=== PATIENT | male | born 1975 | race Caucasian/White ===

== ENCOUNTER 2024-01-21 17:35 | Emergency (ER) | payer MEDICARE, BC, SELFPAY ==
[2024-01-21] VITALS (17 sets, daily range): BP systolic 151–178; BP diastolic 85–102; PULSE 62–92; TEMP 36.8; O2SAT 94–97; BMI 39.0
--- NOTE | 2024-01-21 17:38 | ECG_ITS ---
[facility] Test Date: 2024-01-21 Pat Name: Markos Souza Department: Room: - Gender: Male Electric [employer]: : 1975 Requested By: [id number] Order Number: [id number] Reading MD: ADAM BEDOYA Measurements Intervals Ele[place] Rate: 60 P: 60 NJ: 126 QRS: 50 QRSD: 118 T: 27 QT: 430 QTc: 431 Interpretive Statements 1100 Sinus rhythm 2440 Incomplete right bundle branch block 4068 Nonspecific Twave abnormality 9130 borderline ECG No previous ECG available for comparison Electronically Signed On 01-22-2024 5:21:44 EDT by ADAM BEDOYA
--- NOTE | 2024-01-21 17:39 | ED.SYNCOPE1 ---
HPI - Syncope General Chief Complaint: Syncope Stated Complaint: DIZZY Time Seen by Provider: 01/21/24 17:38 History of Present Illness HPI narrative: Patient is a 48-year-old male with a longstanding history of headaches who was seen by the [facility] for neurology for them, presents to the ER by ambulance after syncopal episode at home. He states he had an increase in his typical headache today. He calls this a headache spell when he has pain on top of his typical headache. He reports global head pain and states he was walking from the kitchen to the bathroom when he passed out on the floor. He reports pain in the left shoulder from the fall. He denies neck pain, back pain, chest pain, shortness of breath, fevers, chills, cough, congestion. He states his daughter was seen earlier today and diagnosed with strep. Related Data Previous Rx's ?Medication ?Instructions ?Recorded methocarbamol 750 mg tablet 750 mg PO TID PRN pain #20 tabs 01/21/24 metoclopramide HCl 10 mg tablet 10 mg PO Q6H PRN nausea and 01/21/24 (Reglan) vomiting #12 tabs Allergies Allergy/AdvReac Type Severity Reaction Status Date / Time cyproheptadine Allergy Severe Verified 01/21/24 17:40 [From Periactin] nadolol Allergy Severe Verified 01/21/24 17:40 Review of Systems ROS Constitutional Denies: fever or chills Eyes Denies: change in vision Ears, nose, mouth, and throat Denies: throat pain or nasal congestion Cardiovascular Denies: chest pain Respiratory Denies: shortness of breath or cough Gastrointestinal Denies: nausea, vomiting or diarrhea Musculoskeletal Reports: extremity pain and joint pain; Denies: back pain or neck pain Integumentary/Breast Denies: rash Neurological Reports: headache; Denies: numbness in extremities or weakness in extremities Hematologic/Lymphatic Denies: easy bruising or easy bleeding Exam Narrative Exam Narrative: Gen.: Awake, alert, in no distress Head: Normocephalic, atraumatic ENT: Moist mucous membranes, no facial injury Respiratory: No respiratory distress, lungs clear bilaterally Cardio: Regular rate and rhythm Extremities: Tenderness and Limited range of motion at the left shoulder. No obvious deformity or sulcus sign Psych: Normal mood and affect Neuro: No focal neuro deficit Skin: Warm, dry, intact Constitutional Vital Signs, click to edit/add: Last Vital Signs Temp 98.2 F 01/21/24 17:37 Pulse 66 01/21/24 17:37 Resp 18 01/21/24 17:37 BP 164/86 H 01/21/24 17:37 Pulse Ox 96 01/21/24 17:37 O2 Del Method Room Air 01/21/24 17:37 Course Vital Signs Vital signs: Vital Signs Temperature 98.2 F 01/21/24 17:37 Pulse Rate 66 01/21/24 17:37 Respiratory Rate 18 01/21/24 17:37 Blood Pressure 164/86 H 01/21/24 17:37 Pulse Oximetry 96 01/21/24 17:37 Oxygen Delivery Method Room Air 01/21/24 17:37 Temperature 98.2 F 01/21/24 17:37 Pulse Rate 66 01/21/24 17:37 Respiratory Rate 18 01/21/24 17:37 Blood Pressure 164/86 H 01/21/24 17:37 Pulse Oximetry 96 01/21/24 17:37 Oxygen Delivery Method Room Air 01/21/24 17:37 MDM - Syncope MDM Narrative Medical decision making narrative: Patient was given IV fluids, Reglan, Benadryl, Norflex for treatment of headache and shoulder pain. Toradol was given by EMS prior to arrival. Vital signs are stable, no EKG changes noted. Labs including respiratory panel and strep screen are negative. Patient is feeling better on reevaluation by attending physician. CT of the brain, C-spine and shoulder x-rays are unremarkable and he is discharged to follow-up with PCP. Return to the ER if symptoms change or worsen Medical Records Attestation: I reviewed the patient's medical records. Lab Data Attestation: I reviewed the patient's lab results. Labs: Lab Results 01/21/24 01/21/24 Range/Units 17:30 17:45 WBC 6.0 (4.0-11.0) 10^3/uL RBC 5.05 (4.70-6.10) 10^6/uL Hgb 14.5 (14.0-18.0) g/dL Hct 44.0 (42.0-54.0) % MCV 87.1 (80.0-94.0) fL MCH 28.7 (25.9-34.0) pg MCHC 33.0 (29.9-35.2) g/dL RDW 13.4 (11.0-15.0) % Plt Count 313 (150-450) 10^3/uL MPV 9.7 (9.5-13.5) fL Neut % (Auto) 48.3 (43.0-75.0) % Lymph % (Auto) 39.2 (20.5-60.0) % Burnett % (Auto) 10.6 (1.7-12.0) % Eos % (Auto) 1.3 (0.9-7.0) % Baso % (Auto) 0.3 (0.2-2.0) % Neut # (Auto) 2.9 (1.4-6.5) 10^3/uL Lymph # (Auto) 2.3 (1.2-3.8) 10^3/uL Burnett # (Auto) 0.6 (0.3-0.8) 10^3/uL Eos # (Auto) 0.1 (0.0-0.7) 10^3/uL Baso # (Auto) 0.0 (0.0-0.1) 10^3/uL Abs Immat Gran (auto) 0.02 (0.00-0.03) 10^3/uL Imm/Tot Granulo (auto) 0.3 (0.0-0.5) % PT 9.6 (9.0-11.6) sec INR <0.93 Sodium 146 H (136-145) mmol/L Potassium 3.1 L (3.5-5.1) mmol/L Chloride 106 (98-107) mmol/L Carbon Dioxide 27.7 (21.0-32.0) mmol/L Anion Gap 15.4 BUN 17.0 (7.0-18.0) mg/dL Creatinine 1.29 (0.70-1.30) mg/dL Est GFR ( Amer) >60 (>=60) Est GFR (Non-Af Amer) 59 L (>=60) BUN/Creatinine Ratio 13.2 Glucose 91 (74-106) mg/dL Lactate 1.6 (0.4-2.0) mmol/L Calcium 8.9 (8.5-10.1) mg/dL Total Bilirubin 0.4 (0.2-1.0) mg/dL AST 41 H (15-37) U/L ALT 65 H (16-63) U/L Alkaline Phosphatase 75 (46-116) U/L Troponin I High Sens 11.7 (4.0-76.1) pg/mL Total Protein 7.8 (6.4-8.2) g/dL Albumin 4.1 (3.4-5.0) g/dL Globulin 3.7 g/dL Albumin/Globulin Ratio 1.1 Adenovirus (PCR) Not detected (NOT DETECTE) C. pneumoniae DNA (PCR) Not detected (NOT DETECTE) Coronavirus Type OC43 Not detected (NOT DETECTE) Coronavirus Type HKU1 Not detected (NOT DETECTE) Coronavirus Type 229E Not detected (NOT DETECTE) Coronavirus Type NL63 Not detected (NOT DETECTE) Human Metapneumovir PCR Not detected (NOT DETECTE) M. pneumoniae (PCR) Not detected (NOT DETECTE) Parainfluenza PCR Not detected (NOT DETECTE) Parainfluenza 2 (PCR) Not detected (NOT DETECTE) Parainfluenza 3 (PCR) Not detected (NOT DETECTE) Parainfluenza 4 (PCR) Not detected (NOT DETECTE) RSV (RT-PCR) Not detected (NOT DETECTE) Entero/Rhino (PCR) Not detected (NOT DETECTE) SARS-CoV-2 (PCR) Not detected (NOT DETECTE) Streptococcus Screen Negative Bordetella pertussis (PCR) Not detected (NOT DETECTE) B parapertussis DNA PCR Not detected (NOT DETECTE) Influenza Type A (PCR) Not detected (NOT DETECTE) Influenza Type B (PCR) Not detected (NOT DETECTE) Imaging Data CT scan - head: Attestation: I have reviewed the pertinent imaging results. Radiologist's impression: ITS Impressions Cervical Spine CT 01/21/24 17:43 IMPRESSION: No acute fracture of the cervical spine. Electronically authenticated by: KENNETH EVANGELISTA Date: 01/21/2024 19:[address] 01/21/24 17:43 IMPRESSION: No intracranial mass lesion or hemorrhage. No CT evidence of acute infarct. Electronically authenticated by: KENNETH EVANGELISTA Date: 01/21/2024 18:58 ECG Data Attestation: I personally reviewed and interpreted this ECG as follows: (Will sinus rhythm at a rate of 60, incomplete right bundle branch block, no acute ST elevation or ectopy. EKG reviewed by attending physician) Discharge Plan Discharge Stand Alone Forms: Portal Instructions Chief Complaint: Syncope Clinical Impression: Headache, Syncope, Contusion of left shoulder Patient Disposition: Home, Self-Care Time of Disposition Decision: 19:23 Condition: Good Prescriptions / Home Meds: New methocarbamol 750 mg tablet 750 mg PO TID PRN (Reason: pain) Qty: 20 0RF metoclopramide HCl [Reglan] 10 mg tablet 10 mg PO Q6H PRN (Reason: nausea and vomiting) Qty: 12 0RF Print Language: American Instructions: Syncope (ED), Acute Headache (ED) Referrals: CHERRIE RO [Primary Care Provider] - 1 week
--- NOTE | 2024-01-21 17:43 | XR_ITS ---
[address] [address] Patient Name: JUD NELSON MRN: [id number] date: 1975 Sex: M Assigned Patient Location: ER Current Patient Location: ER Accession/Order Number: [id number] Exam Date: 01/21/2024 18:15 Report Date: 01/21/2024 19:07 At the request of: BAKARI YUAN Procedure: XR shoulder LT min 2V IMAGES REVIEWED: XR shoulder LT min 2V COMPARISON: None available. CLINICAL INDICATION: Syncope, fall FINDINGS/IMPRESSION: No evidence of acute osseous abnormality of the left shoulder. Age-appropriate degenerative change. Electronically authenticated by: HALIMA MURILLO Date: 01/21/2024 19:07
--- NOTE | 2024-01-21 17:43 | CT_ITS ---
The [address] [address] Patient Name: JUD NELSON MRN: [id number] date: 1975 Sex: M Assigned Patient Location: ED.MAIN Current Patient Location: ED.MAIN Accession/Order Number: [id number] Exam Date: 01/21/2024 18:15 Report Date: 01/21/2024 18:58 At the request of: BAKARI YUAN Procedure: CT head/brain wo con CT head/brain wo con HISTORY: Headache, syncope COMPARISON: None. TECHNIQUE: Contiguous axial images were obtained from the skull base to the vertex without intravenous contrast. Sagittal and coronal reformatted images are also submitted. One of the following dose optimization techniques was utilized in the performance of this exam: Automated exposure control; adjustment of the mA and/or kV according to the patient's size; or use of an iterative reconstruction technique. Specific details can be referenced in the facility's radiology CT exam operational policy. FINDINGS: Brain volume: Normal. Ventricles: Normal. Acute ischemic changes: None. Hemorrhage: None. Masses/edema: None. Luciano-white: Negative. White matter: Normal. Vessels: Negative. Extra-axial: Negative. Calvarium/scalp: Negative. Skull base/visualized face: Negative. Visualized sinuses/orbits: Negative. CT/CT head/brain wo con IMPRESSION: No intracranial mass lesion or hemorrhage. No CT evidence of acute infarct. Electronically authenticated by: KENNETH EVANGELISTA Date: 01/21/2024 18:58
--- NOTE | 2024-01-21 17:43 | CT_ITS ---
The [address] [address] Patient Name: JUD NELSON MRN: [id number] date: 1975 Sex: M Assigned Patient Location: ER Current Patient Location: ER Accession/Order Number: [id number] Exam Date: 01/21/2024 18:15 Report Date: 01/21/2024 19:00 At the request of: BAKARI YUAN Procedure: CT cervical spine wo con CT cervical spine wo con HISTORY: fall COMPARISON: None. TECHNIQUE: Axial images were obtained from the skull base through the upper thoracic spine without IV contrast administration. Coronal and sagittal reformatted images were obtained from the axial source data. One of the following dose optimization techniques was utilized in the performance of this exam: Automated exposure control; adjustment of the mA and/or kV according to the patient's size; or use of an iterative reconstruction technique. Specific details can be referenced in the facility's radiology CT exam operational policy. FINDINGS: Alignment: Normal. Cranio-cervical junction: Negative. Vertebral bodies: Negative. Posterior elements: Negative. Hardware: None. 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 Visualized upper chest: Negative. CT/CT cervical spine wo con IMPRESSION: No acute fracture of the cervical spine. Electronically authenticated by: KENNETH EVANGELISTA Date: 01/21/2024 19:00
[2024-01-21 17:58] LABS: Adenovirus NOT DETECTED (NOT DETECTE); Bordetella parapertussis NOT DETECTED (NOT DETECTE); Coronavirus 229E NOT DETECTED (NOT DETECTE); Coronavirus HKU1 NOT DETECTED (NOT DETECTE); Coronavirus NL63 NOT DETECTED (NOT DETECTE); Coronavirus OC43 NOT DETECTED (NOT DETECTE); Human Metapneumovirus NOT DETECTED (NOT DETECTE); Human Rhinovirus/Enterovirus NOT DETECTED (NOT DETECTE); Influenza A NOT DETECTED (NOT DETECTE); Influenza B NOT DETECTED (NOT DETECTE); Mycoplasma pneumoniae NOT DETECTED (NOT DETECTE); Parainfluenza Virus 1 NOT DETECTED (NOT DETECTE); Parainfluenza Virus 2 NOT DETECTED (NOT DETECTE); Parainfluenza Virus 3 NOT DETECTED (NOT DETECTE); Parainfluenza Virus 4 NOT DETECTED (NOT DETECTE); Respiratory Syncytial Virus NOT DETECTED (NOT DETECTE); SARS-CoV-2 NOT DETECTED (NOT DETECTE)
[2024-01-21 18:04] LABS: Basophils Percent Auto 0.3 % (0.2-2.0); Eosinophils Absolute Auto 0.1 10^3/uL (0.0-0.7); Eosinophils Percent Auto 1.3 % (0.9-7.0); Hemoglobin 14.5 g/dL (14.0-18.0); Immature Granulocytes Abs Auto 0.02 10^3/uL (0.00-0.03); Immature Granulocytes Pct Auto 0.3 % (0.0-0.5); Lymphocytes Absolute Auto 2.3 10^3/uL (1.2-3.8); Lymphocytes Percent Auto 39.2 % (20.5-60.0); Mean Corpuscular Hemoglobin 28.7 pg (25.9-34.0); Mean Corpuscular Volume 87.1 fL (80.0-94.0); Mean Platelet Volume 9.7 fL (9.5-13.5); Monocytes Absolute Auto 0.6 10^3/uL (0.3-0.8); Monocytes Percent Auto 10.6 % (1.7-12.0); Neutrophils Absolute Auto 2.9 10^3/uL (1.4-6.5); Neutrophils Percent Auto 48.3 % (43.0-75.0); Platelet Count 313 10^3/uL (150-450); Red Blood Count 5.05 10^6/uL (4.70-6.10); Red Cell Distribution Width 13.4 % (11.0-15.0)
[2024-01-21 18:13] LABS: Internal Control Within Normal Limits; Strep A Antigen Screen Negative
[2024-01-21 18:17] LABS: Prothrombin Time 9.6 sec (9.0-11.6)
[2024-01-21 18:18] LABS: INR <0.93
[2024-01-21 18:21] LABS: Lactate/Lactic Acid 1.6 mmol/L (0.4-2.0)
[2024-01-21 18:28] LABS: Alanine Aminotransferase 65 U/L (16-63); Albumin Globulin Ratio 1.1; Albumin Level 4.1 g/dL (3.4-5.0); Alkaline Phosphatase 75 U/L (46-116); Anion Gap 15.4; Aspartate Amino Transferase 41 U/L (15-37); BUN Creatinine Ratio 13.2; Bilirubin Total 0.4 mg/dL (0.2-1.0); Calcium 8.9 mg/dL (8.5-10.1); Carbon Dioxide 27.7 mmol/L (21.0-32.0); Chloride 106 mmol/L (98-107); Estimated GFR (African America >60 (>=60); Estimated GFR (Non-African Ame 59 (>=60); Globulin 3.7 g/dL; Glucose 91 mg/dL (74-106); Potassium 3.1 mmol/L (3.5-5.1); Sodium 146 mmol/L (136-145); Total Protein 7.8 g/dL (6.4-8.2); Troponin I High Sensitivity 11.7 pg/mL (4.0-76.1)
[2024-01-21] MEDS: 0.9 % SODIUM CHLORIDE 1,000 ML 999 ML IV (18:49)
[2024-01-21] MEDS: DIPHENHYDRAMINE HCL 50 MG/ML (1ML) VIAL 25 MG IV (18:50)
[2024-01-21] MEDS: ORPHENADRINE 60 MG/ 2 ML VIAL IV (18:50)
[2024-01-21] MEDS: METOCLOPRAMIDE HCL 10 MG/2 ML VIAL IVP (18:50)
[2024-01-21] MEDS: POTASSIUM CHLORIDE 10 MEQ ER TABLET 40 MEQ PO (19:16)
== END 2024-01-21 19:50 | disposition home or self-care (01) ==
PROVIDERS: Physician Assistant; Emergency Provider Emergency Medicine; PCP Family Medicine
DX: R55 Syncope and collapse (principal); R51.9 Headache, unspecified; S40.012A Contusion of left shoulder, initial encounter; Z20.822 Contact with and (suspected) exposure to COVID-19; W19.XXXA Unspecified fall, initial encounter
CPT/HCPCS: 0202U; 36415; 70450; 72125; 73030; 80053; 83605; 84484; 85025; 85610; 87070; 87880; 93005; 96374; 96375; 99285